=== PATIENT | female | born 1945 | race Caucasian/White ===

== ENCOUNTER 2024-01-14 13:48 | Emergency (ER) | payer MEDICARE, OTHER ==
[~2024-01-14] VITALS: Ht 180.3 cm; Wt 70.5 kg
[~2024-01-14 13:48] MED LIST: ASPI-1265 PO; LACT1CAP65 PO; NITR100C6 PO; OMEP40CA21 PO
[2024-01-14 14:13] VITALS: TEMP 97.7
[2024-01-14] MEDS ORDERED: LORazepam 2 mg/ml vial IV ONE (14:25)
[2024-01-14] MEDS: morphine 2 MG/ML inj. syringe IV ONE (14:25)
[2024-01-14] MEDS: LORazepam 2 mg/ml vial IV ONE (14:59)
[2024-01-14] MEDS: ondansetron/PF 4mg/2ml inj IV ONE (14:59)
[2024-01-14] MEDS ORDERED: SCOP1PAT11 TOP (15:17)
[2024-01-14] MEDS ORDERED: FENT-90 TOP (15:17)
[2024-01-14] MEDS ORDERED: LORA2ORA PO (15:17)
[2024-01-14] MEDS ORDERED: LIDOcaine 5% patch TP SCH (15:25)
[2024-01-14] MEDS ORDERED: MORP100S7 PO (16:08)
[2024-01-14] MEDS: LIDOcaine 5% patch TP ONE (16:18)
[2024-01-14] MEDS: scopolamine 1MG/72H patch 1 PATCH PATCH.TD.3 TD SCH (16:35)
[2024-01-14] MEDS: fentaNYL 12 MCG/hour patch.TD72 TD SCH (16:58)
[2024-01-14 17:06] VITALS: BP 93/68; PULSE 96; RESP 12; O2SAT 96
== END 2024-01-14 17:30 ==
LOC: ER 13:49
DX: M25.551 Pain in right hip (principal); M25.552 Pain in left hip; F41.9 Anxiety disorder, unspecified; E78.00 Pure hypercholesterolemia, unspecified; Z79.82 Long term (current) use of aspirin; Z79.899 Other long term (current) drug therapy
CPT/HCPCS: 96374; 96375; 99284; J2060; J2405